=== PATIENT | male | born 1985 | race Caucasian/White ===

== ENCOUNTER 2016-11-23 07:45 | Inpatient (IN) | payer MEDICARE, MEDICAID ==
[~2016-11-23] VITALS: Ht 180.3 cm; Wt 95.8 kg
--- NOTE | ~2016-11-23 | DS ---
PATIENT'S NAME: ULISSES YODER [facility] AGE: 31 Y [address] ROOM: [address] [place], [place] [address] LOCATION: G3N ADMIT DATE: 11/23/2016 Discharge Summary DISCHARGE DATE: 11/29/2016 FAMILY PHYSICIAN: Kings Patel MD ATTENDING PHYSICIAN: Domo Barney PRIMARY DIAGNOSES: 1. Severe sepsis. 2. MSSA bacteremia. 3. Line sepsis. 4. Acute hypoxic respiratory failure. 5. Pulmonary edema. 6. Pulmonary nodules on radiological imaging with mediastinal and hilar adenopathy. 7. Tngcja-fo-bmxqrls kidney disease. 8. Thrombocytopenia. CHRONIC CONDITIONS: Chronic conditions include end-stage renal disease, on hemodialysis; essential hypertension. LABORATORY DATA: On admission, WBC is 6.0, prior to discharge was 7.2, H and H on admission was 8.8/27.8, was stable throughout hospital stay at 8.0/24.4, prior to discharge; platelet on admission was 108, prior to discharge was 132,000. Sodium was stable at 135 throughout the hospital stay; potassium as well was stable at 4.2 on admission, prior to discharge was 5.0; CO2 on admission was 29, was stable throughout the hospital stay as well. Liver function test was within normal limits. LDH was 248. Phosphorus was 9.5. Magnesium was 2.7. INR was 1.2. Pro-time was 12.7. UA leukocytes 25, nitrite negative, wbc 10-20, bacteria moderate. Procalcitonin on admission was 116.81, repeat was 105.46. CRP was 26.7. MICROBIOLOGY: Two sets of blood cultures on admission were positive for Staph, which was methicillin-sensitive. Urine culture was multiple species with contaminants. Catheter tip was also positive for Staph aureus methicillin-sensitive. Stool for occult blood was negative. Stool for C. diff was negative. Repeat blood culture which was done 3 days after admission remained no growth till discharge. RADIOLOGY: Chest x-ray is reported as no evidence of pneumonia, borderline cardiomegaly, with chronic venous hypertension or mild fluid overload and also imaging for removal of tunneled central venous catheter without port. Repeat chest x-ray is reported as findings of fluid overload or congestive heart failure with cardiac enlargement, vascular congestion, bilateral perihilar and infrahilar edema, infiltrate and atelectasis could also contribute to the hazy parenchymal opacity in the both lungs. CTA for PE protocol of the chest is PATIENT'S NAME: ULISSES YODER [facility] AGE: 31 Y [address] ROOM: [address] [place], [place] [address] LOCATION: [facility] ADMIT DATE: 11/23/2016 Discharge Summary DISCHARGE DATE: 11/29/2016 FAMILY PHYSICIAN: Kings Patel MD ATTENDING PHYSICIAN: Domo Barney reported as no CT findings of pulmonary embolism, mediastinal and hilar adenopathy, cardiac enlargement with vascular congestion, diffuse ground-glass opacity in the parenchyma of both lungs, which could reflect edema or infiltrate. Too numerous to count pulmonary nodules predominantly in the periphery of both lungs measuring in size up to about 2 cm. This could be infectious or inflammatory origin or of neoplastic origin. Small pericardial effusion. HOSPITAL COURSE: For history of present illness, please take a look at the H and P, which was done by Dr. Barney. The patient was admitted to Progressive Care Unit and was managed as per the sepsis protocol pathway. The patient was started on broad-spectrum antibiotics of meropenem, Levaquin, and vancomycin from the first day of the hospital stay. Also, on the first day of the hospital stay, source of infection was thought to be secondary to the tunnel dialysis catheter, which was subsequently removed on the first day of the hospital stay, and catheter tip sent for culture. By the next day of the hospital stay, blood culture and the catheter tip culture were already positive for Staph; so, the antibiotics was deescalated down to vancomycin only with meropenem and Levaquin being discontinued. The patient continued on vancomycin and also had a temporary dialysis catheter put in place and continue with his dialysis. He was followed up by the Renal Team for this. However, the patient also did develop some acute hypoxic respiratory failure, which was thought to be secondary to pulmonary edema from fluid overload; however, there was difficulty in weaning the patient off his oxygen. Because of this and because of the finding on the echocardiogram which revealed increased pressure on the right-side of the heart as well as increased PE pressure, there was concern for a PE; so, a CTA chest for PE was done, which was negative for PE; however, did show mediastinal and hilar lymphadenopathy as well as numerous pulmonary nodules, which were present on the periphery of the lungs. Given the CT findings, the patient also did get a Pulmonary consult and Pulmonary did not think that the radiological imaging was classical for sarcoid, but they felt that most of the findings could be secondary to still sign of fluid overload; so, they recommended for Renal to take more fluid out from the patient during dialysis. The patient was also evaluated by the Infectious Disease doctor for recommendation on antibiotics and duration; and after patient was reviewed by them, they recommended the patient to be on Ancef after dialysis for a total of 4 weeks and ID doctors felt that possibly the numerous pulmonary nodules on the CT may be showers of emboli from the patient's infected tunneled dialysis catheter and in order to err on the side of caution they recommended for the patient to be treated for a total of 4 weeks should in case this indeed actually embolize. So, plan by the Pulmonary Team was for the patient to get a repeat CT of his chest done in 6 weeks and for the patient to follow up with them as outpatient. On the day of discharge, the patient had his dialysis done, he had more fluid pulled out such that his discharge weight was less than his usual dry weight. He was PATIENT'S NAME: ULISSES YODER [facility] AGE: 31 Y [address] ROOM: [address] [address] LOCATION: [facility] ADMIT DATE: 11/23/2016 Discharge Summary DISCHARGE DATE: 11/29/2016 FAMILY PHYSICIAN: Kings Patel MD ATTENDING PHYSICIAN: Domo Barney successfully weaned off the oxygen to room air; however, he did also get an overnight trend ox done, which was positive, and he required him to go home with O2 only at nighttime; however, because his insurance did not cover this, the patient decided not to go home on oxygen and not to go ahead with this plan; so, he was discharged home without oxygen to sleep with at night even though the desaturation at daytime was within a normal value. So, on the day of discharge, after his dialysis, he received his antibiotics, vital signs were stable, and he was discharged home. MEDICATIONS ON DISCHARGE: Includes: 1. Aspirin 81 mg p.o. q.h.s. 2. Lipitor 10 mg p.o. q.h.s. 3. Coreg 37.5 mg p.o. twice daily. 4. Ferrous sulfate 325 mg p.o. q.h.s. 5. Lasix 80 mg p.o. q.h.s. 6. Hydralazine 100 mg p.o. 3 times daily. 7. Cozaar 50 mg p.o. q.h.s. 8. Minoxidil 5 mg p.o. q.h.s. 9. Sodium bicarb 650 mg p.o. q.h.s. 10. Tylenol 1 g p.o. q.6 h. p.r.n. 11. Ferric citrate 420 mg p.o. 3 times daily. 12. Cefazolin 2 g IV after each session of dialysis on Tuesdays, , and Saturdays x4 weeks from November 26, 2016. Time spent on this patient is approximately 35 minutes, which included coordinating care of discharge. MD CIELO FRANCO/kennedy /[id number] d: 11/30/16 0026 t: 12/10/16 1008, DISCHARGE SUMMARY
--- NOTE | ~2016-11-23 | ECHO ---
Transthoracic Echocardiography Report (TTE) Demographics Patient Name ULISSES YODER Date of Study 11/25/2016 P Patient Number [id number] Visit Number [id number] Date of 1985 Room Number G6335 Gender Male Number Age 31 year(s) Referring Jorge Del Real Preform Machine Operator Lucina Albarran RDCS, Physician RVT Physician Interpreting Marilee Pacheco [employer]aster Helper Physician Anna BAKER Supervising Ordering Ector Hernandez MD/MLP Physician MD Nurse Stress Saw Grinder Conclusions Contractility Score Summary Normal Left Ventricular contractility was noted. Summary The estimated left ventricular ejection fraction is 55-60%. Mild concentric left ventricular hypertrophy. Diastolic assessment reveals Grade I diastolic dysfunction. The left atrium is moderately dilated. The right atrium is moderate to severely dilated. There is moderate pulmonary hypertension. The pulmonary pressure (RVSP) is 56mmHg. Mild-moderate tricuspid regurgitation by color Doppler. The ascending aorta appears mildly dilated. The maximum diameter measures 3.45 cm. Procedure Type of Study TTE procedure:2D Echocardiogram. Procedure Date Date: 11/25/2016 Start: 08:58 AM Study Location: Inpatient Portable Indications:Endocarditis. Additional Indications:sepsis Appropriate Use Criteria: 9 Patient Status: Routine Rhythm: Sinus tachycardia HR: 96 bpm BP: 154/77 mmHg M-Mode/2D Measurements LV Diastolic Dimension: 5.23 cm LV Systolic Dimension: 3.41 cm LV Septum Diastolic: 1.3 cm LV PW Diastolic: 1.41 cm AO Root Dimension: 2.5 cm Cardiac Output: 8.57 l/min AV Cusp Separation: 2.8 cm RV Diastolic Dimension: 2.64 cm LA volume: 84 ml IVC Inspiration: 1.04 cm LVOT: 2.3 cm RV Base: 4.8 cm LVOT VTI: 21.5 cm RV Mid: 3.2 cm LV Stroke volume: 89.28 ml TAPSE: 2.5 cm TDI-S': 18 cm/s Doppler Measurements AV Peak Velocity: 2.33 m/s MV Peak E-Wave: 0.9 m/s AV Peak Gradient: 21.72 mmHg MV Peak A-Wave: 1.15 m/s AV Mean Gradient: 11 mmHg MV E/A Ratio: 0.79 LVOT Peak Velocity: 1.31 m/s MV P1/2t: 71 msec TR Gradient:46.24 mmHg PV Peak Velocity: 1.46 m/s Estimated RAP:10 mmHg PV Peak Gradient: 8.53 mmHg Estimated RVSP: 56 mmHg Estimated PASP: 56.24 mmHg E' Lateral Velocity: 0.11 m/s A' Lateral Velocity: 0.15 m/s Findings Left Ventricle The estimated left ventricular ejection fraction is 55-60%. Mild concentric left ventricular hypertrophy. Diastolic assessment reveals Grade I diastolic dysfunction. Right Ventricle Normal right ventricle structure and function. Left Atrium The left atrium is moderately dilated. Right Atrium The right atrium is moderate to severely dilated. Mitral Valve Mild mitral regurgitation by color Doppler. Aortic Valve The aortic valve is mildly sclerotic. Tricuspid Valve There is moderate pulmonary hypertension. The pulmonary pressure (RVSP) is 56mmHg. Mild-moderate tricuspid regurgitation by color Doppler. Pulmonic Valve Trivial pulmonic valve regurgitation by color Doppler. Pericardial Effusion No evidence of pericardial effusion. Miscellaneous The ascending aorta appears mildly dilated. The maximum diameter measures 3.45 cm. Pleural Effusion No evidence of pleural effusion. Signature dtt: Abiodun Hunt dtd: 11/25/16 0858 Physician Self Edit
--- NOTE | ~2016-11-23 | HP ---
PATIENT'S NAME: ULISSES YODER [facility] AGE: 31 Y [address] ROOM: [place] [address] LOCATION: GPCU ADMIT DATE: 11/23/2016 History & Physical DISCHARGE DATE: FAMILY PHYSICIAN: GEOVANNA GALLO MD ATTENDING PHYSICIAN: KIMBERLY CAZARES DATE OF SERVICE: CHIEF COMPLAINT: Fever and chills. HISTORY OF PRESENT ILLNESS: A 31-year-old gentleman with a past medical history of essential hypertension and end-stage renal disease of unclear etiology, at this point having on hemodialysis for quite some time now. Fistula placed on the left side. Had a port placement 1 week ago at [facility] on the right side and had previous port removed secondary to thrombosis. He was at dialysis center yesterday when he started having fever and chills. His 2 sets of blood cultures were drawn there and he was given 1 g of vancomycin and was sent home. He continued to have fever and chills overnight and presented to the emergency department today with the similar complaints. On my encounter, he is saying that he is having fever and rigors, but he denied having any shortness of breath, any sputum production, any dizziness, any burning on urination (makes very little urine), any diarrhea, or any leg swelling. On further inquiry, he denied having any PND, orthopnea, or dizziness. REVIEW OF SYSTEMS: All other systems reviewed and were negative except what is mentioned in the HPI. PAST MEDICAL HISTORY: Essential hypertension and end-stage renal disease, on hemodialysis. MEDICATIONS: Medications are being reconciled right now. ALLERGIES: NO KNOWN DRUG ALLERGIES. SOCIAL HISTORY: Never a smoker. No drug or alcohol use. FAMILY HISTORY: Family history is significant for high blood pressure in both mom and dad and diet-controlled diabetes in mother. PATIENT'S NAME: ULISSES YODER [facility] AGE: 31 Y [address] ROOM: [place] [address] LOCATION: GPCU ADMIT DATE: 11/23/2016 History & Physical DISCHARGE DATE: FAMILY PHYSICIAN: GEOVANNA GALLO MD ATTENDING PHYSICIAN: KIMBERLY CAZARES PHYSICAL EXAMINATION: VITAL SIGNS: Blood pressure 95/64, 100, 102.4, 20. GENERAL: No acute distress. Alert and oriented x3. HEENT: Head: Atraumatic and normocephalic. Eyes: Nonicteric. No pallor. Oropharynx. Moist mucous membranes. CARDIOVASCULAR: S1, S2. Overflow murmur, systolic noted. RESPIRATORY: Clear to auscultation bilaterally. ABDOMEN: Soft, nontender, nondistended. Bowel sounds are present. EXTREMITIES: No clubbing, cyanosis, or edema. VASCULAR: Left upper extremity fistula noted. There is right subclavian dialysis catheter in place. NEUROLOGIC: Cranial nerves 2 through 12 intact. No motor or sensory deficits. PSYCH: Normal affect, mood, and speech. IMAGING DATA: Chest x-ray was done in the emergency department, which showed mild pulmonary vascular congestion and a questionable infiltrate in the right lower lung lobe and a dialysis port is in place. LABORATORY DATA: Lab work was remarkable for lactic acid of 3.4, procalcitonin is of 116.81. CMP: Sodium 135, potassium 4.2, chloride of 93, bicarb 29, anion gap of 17, glucose 148, calcium 8.0, BUN 56, creatinine 10. AST and ALT 60 and 72 respectively. Troponin was less than 0.100, proBNP was 46,182. CBC: Obtained WBC count was 6, hemoglobin 8.8, platelets of 108. C-reactive protein of 26. ASSESSMENT/PLAN: 1. Severe sepsis. 2. End-stage renal disease. 3. Essential hypertension. PLAN: We are going to admit this patient to the PCU. At this point, the likely source of infection is the dialysis catheter, which is in the subclavian. We will remove that catheter line DENA. There might be an infiltrate in the lung as well. We are going to start him on sepsis protocol. Two sets of blood cultures have already been obtained at the dialysis center yesterday, we will not repeat those. He has already received 1 L of normal saline. Given, he is a dialysis patient, we will repeat only 500 mL of Ringer's lactate more and see how his blood pressure improves, broad-spectrum antibiotics including vancomycin, meropenem, and Levaquin have been initiated. We will obtain repeat lactic acid levels and see the progress. Nephrology consultation has been obtained and they will see the patient. Given that we have to remove his PATIENT'S NAME: [facility] AGE: 31 Y [address] ROOM: [address] [place], [place] [address] [facility] ADMIT DATE: 11/23/2016 History & Physical DISCHARGE DATE: FAMILY PHYSICIAN: GEOVANNA GALLO MD ATTENDING PHYSICIAN: KIMBERLY CAZARES central line, we will not start him on chemical prophylaxis at this point. SCDs, and low-sodium diet. We will follow along. MD ISMAEL SANDOVAL/kennedy /[id number] D: [id number] T: [id number] HISTORY & PHYSICAL
--- NOTE | ~2016-11-23 | CON ---
PATIENT'S NAME: ULISSES YODER [facility] AGE: 31 Y [address] ROOM: [address] [place], [place] [address] LOCATION: G3N ADMIT DATE: 11/23/2016 Consultation DISCHARGE DATE: 11/29/2016 FAMILY PHYSICIAN: Kings Patel MD ATTENDING PHYSICIAN: Domo Barney DATE OF CONSULTATION: 11/28/2016 REFERRING PHYSICIAN: Tiffanie Sanders MD INDICATION: Pulmonary nodules and adenopathy. HISTORY OF PRESENT ILLNESS: This is a 31-year-old male with a history of end-stage renal disease and hypertension, admitted for sepsis and acute respiratory failure. He reports that he had his port replaced last week after the previous one was removed due to thrombosis. Shortly thereafter, he developed fever, chills, nausea, and was evaluated in the ER. He was started on vancomycin, and blood cultures returned positive for Staph aureus. He reports a history of end-stage renal disease, on hemodialysis for the last year secondary to obstructive uropathy. Currently, he denies any shortness of breath, cough, hemoptysis, or edema. He denies any previous lung history. He reports no skin issues. No tobacco use, alcohol use, or drug use. CT of the chest was performed secondary to respiratory failure and demonstrated multiple nodules with adenopathy. An echo was also performed showing bilateral atrial enlargement and pulmonary hypertension. PAST MEDICAL HISTORY: End-stage renal disease, on hemodialysis; and hypertension. ALLERGIES: SEE MAR. MEDICATIONS: See MAR. FAMILY HISTORY: Significant for hypertension and diabetes in his mother. SOCIAL HISTORY: He denies tobacco or alcohol use. REVIEW OF SYSTEMS: A 12-point review of systems is negative except for what is noted in the HPI. PATIENT'S NAME: ULISSES YODER [facility] AGE: 31 Y [address] ROOM: [address] [place], [place] [address] LOCATION: N ADMIT DATE: 11/23/2016 Consultation DISCHARGE DATE: 11/29/2016 FAMILY PHYSICIAN: Kings Patel MD ATTENDING PHYSICIAN: Domo Barney PHYSICAL EXAMINATION: VITAL SIGNS: Blood pressure 135/74, pulse 93, respirations 18, temp 97.8, he is 87% on room air. GENERAL: This is a 31-year-old, well-developed, well-nourished male, who is alert and oriented x3, and appears in no acute distress at the time of exam. HEENT: Head: Normocephalic, atraumatic. Eyes: Clear. NECK: Supple. No adenopathy. No carotid bruits or JVD. LUNGS: With a few bibasilar crackles, otherwise clear. HEART: Regular rate and rhythm without murmur, gallop, or rub. ABDOMEN: Soft, nontender, nondistended. Bowel sounds x4. EXTREMITIES: No cyanosis, clubbing, or edema. DIAGNOSTIC DATA: ProBNP 46,182. Sodium 135, potassium 5, bicarb 20, BUN 101, creatinine 14.8. WBC 7.2, hemoglobin 8, hematocrit 24.4, platelets 132. CT of the chest showed multiple nodules with adenopathy. Echo showed bilateral atrial enlargement, pulmonary hypertension. ASSESSMENT: 1. Abnormal chest CT with few abnormalities including diffuse ground-glass opacities suggestive of pulmonary edema. Multiple lung nodules suggestive of inflammatory condition, possibly granuloma, sarcoid. Overall less likely to be malignant and mediastinal adenopathy, which is small and can be in the context of pulmonary edema versus sarcoid versus malignancy. 2. Acute respiratory failure due to pulmonary edema. 3. End-stage renal disease, on hemodialysis. 4. MSSA bloodstream infection related to the catheter. PLAN: Recommend continuing with aggressive dialysis for now to facilitate resolution of pulmonary edema. We will repeat a chest CT in [address] demonstrates positive LAD at that time, we will plan for bronchoscopy with EBUS and FNA of lymph nodes. Prior to discharge, recommend checking an overnight oximetry. Thank you for the consult and opportunity to participate in this patient's care. APOLINAR VIRK APRN FOR VERN CARVER MD PATIENT'S NAME: ULISSES YOEDR [facility] AGE: 31 Y [address] ROOM: [place] [address] LOCATION: [facility] ADMIT DATE: 11/23/2016 Consultation DISCHARGE DATE: 11/29/2016 FAMILY PHYSICIAN: Kings Patel MD ATTENDING PHYSICIAN: Domo Barney MRH/modl /[id number] d: 12/26/16 0058 t: 01/07/17 1620, CONSULTATION REPORT
--- NOTE | ~2016-11-23 | CON ---
PATIENT'S NAME: ULISSES YODER [facility] AGE: 31 Y [address] ROOM: [id number] [place], [place] [address] LOCATION: GPCU ADMIT DATE: 11/23/2016 Consultation DISCHARGE DATE: FAMILY PHYSICIAN: GEOVANNA GALLO MD ATTENDING PHYSICIAN: KIMBERLY CAZARES DATE OF CONSULTATION: 11/23/2016 REFERRING PHYSICIAN: Cassandra Sanders REASON FOR CONSULTATION: ESRD, need for hemodialysis. HISTORY OF PRESENT ILLNESS: A 31-year-old male patient with history of hypertension, ESRD, never been biopsied but presumably from obstructive uropathy, started on PD since December 2015 and then later switched to hemodialysis in July 2016, now getting dialysis from left forearm AV fistula, had a right tunnelled dialysis catheter since July 2016, last use of TDC was on 11/20/2016, complained of fever and chills since 11/22/2016. He got a dose of vancomycin while on dialysis yesterday and culture was sent, however, since today, culture has had no growth at the outside facility. Today, he came to ER with not feeling well, having some more fever or chills, however, no documented fever since admission. The patient has 29% bands on differentials, and procalcitonin of 116. He denied any chest pain, shortness of breath, cough. No nausea, vomiting, or diarrhea. The patient's last dialysis was yesterday. No urinary complaints including dysuria, urgency, frequency, hesitancy, nocturia. No other specific source of infection. REVIEW OF SYSTEMS: GENERAL: Complaints of fever, chills, and rigors as explained above. HEENT: No sore throat. No sinus congestion. CVS: No chest pain. No exertional shortness of breath. No leg swelling. RESPIRATORY: No shortness of breath. No cough. No wheezing. GENITOURINARY: No pain with urination. No increased frequency. No nocturia. GASTROINTESTINAL: No abdominal pain. No abdominal distention. No nausea or vomiting. NEUROLOGIC: No weakness. No seizures. SKIN: No rash. No itching. ALLERGIES: No seasonal allergy. No hayfever. ENDOCRINE: No heat intolerance. No cold intolerance. PSYCHIATRIC: No sadness. No crying spells. No history of panic attack. PAST MEDICAL HISTORY: 1. Hypertension. 2. ESRD, currently on hemodialysis, presumable etiology is obstructive uropathy. PAST SURGICAL HISTORY: 1. Placement of right tunnelled dialysis catheter in 2016. 2. Placement of a left forearm AVF placement in 2016. 3. Multiple urogenital procedures 8 years back at [place], but the patient can not specify the exact nature of the procedure. FAMILY HISTORY: Denied any significant kidney history or ESRD in the family. SOCIAL HISTORY: The patient does not smoke. Does not drink alcohol. No history of significant IV drug abuse. PATIENT'S NAME: ULISSES YODER [facility] AGE: 31 Y [address] ROOM: [address] [address] LOCATION: GPCU ADMIT DATE: 11/23/2016 Consultation DISCHARGE DATE: FAMILY PHYSICIAN: GEOVANNA GALLO MD ATTENDING PHYSICIAN: KIMBERLY CAZARES PHYSICAL EXAMINATION: VITAL SIGNS: Blood pressure 120/80, pulse 70, respiratory rate 18, saturation 98% on room air. Currently afebrile. GENERAL: Not in apparent distress. HEAD: Moist mucous membranes. Bilateral PERRLA, EOMI. NECK: No JVD, thyromegaly or lymphadenopathy. CVS: S1 and S2 normal, regular rate and rhythm. No murmur, rub, gallop. CHEST: Bilateral air entry equal. No wheeze or rales. ABDOMEN: Soft, nontender, nondistended. Bowel sounds present. EXTREMITIES: No cyanosis, clubbing, or jaundice. Left forearm AVF and right TDC in place. MUSCULOSKELETAL: No limitation of range of motion. SKIN: No pallor, cyanosis, icterus. STRETCH MACHINE OPERATOR: Alert and oriented x3. No gross findings. LABORATORY EVALUATION: Lactate 3.4. Pro-BNP 46,182. Hemoglobin 8.8, WBC 6, platelet 108. Chemistry: Sodium 135, potassium 4.2, chloride 93, bicarbonate 29, BUN 56, creatinine 10, glucose 148, calcium 8. Total protein 5.9, albumin 2.9, AST 60, ALT 72, alkaline phosphatase 52, total bilirubin 0.6. INR 1.2. UA: Specific gravity 1.015, pH 8, positive LE, negative nitrite, 3+ protein, glucose 50, ketone negative, blood 1+, wbc's 10-20, rbc 0-2, moderate bacteria, 1+ mucus. Procalcitonin 116.8. CRP 26.7. Bands 29%. ASSESSMENT AND PLAN: 1. Severe sepsis, possibly secondary to TDC infection versus other source, but, however, we will remove the tunneled dialysis catheter right now, and the patient has been covered with vancomycin, meropenem, and Levaquin until cultures come back. Send blood and urine culture and also the tip of the tunneled dialysis catheter for culture and sensitivity. 2. End-stage renal disease, on hemodialysis now since July 2016. Before, the patient was on PD since October 2015, has functioning left forearm AV fistula. We will remove the TDC today and plan to dialyze tomorrow. 3. Hypertension: Patient has a history of questionable noncompliance versus very uncontrolled hypertension; currently on 5 different medications, we would request the primary team not to restart minoxidil and hydralazine, but, however, they can restart the other home antihypertensive medication whenever feel necessary. Thank you for allowing me to participate in this patient's care. We will closely monitor the patient's progress along with you. [facility] MD /modl /[id number] d: 11/23/162032 t: 11/24/16 1315, CONSULTATION REPORT
--- NOTE | ~2016-11-23 | CON ---
PATIENT'S NAME: ULISSES YODER [facility] AGE: 31 Y [address] ROOM: [place] [address] LOCATION: N ADMIT DATE: 11/23/2016 Consultation DISCHARGE DATE: FAMILY PHYSICIAN: GEOVANNA GALLO MD ATTENDING PHYSICIAN: KIMBERLY CAZARES DATE OF CONSULTATION: 11/28/2016 REFERRING PHYSICIAN: Cassandra Sanders REASON FOR CONSULTATION: MSSA bacteremia associated with a hemodialysis catheter. HISTORY: Mr. Yoder is a 31-year-old, male, who has history of end-stage renal disease and he is on hemodialysis. He had a right IJ tunneled hemodialysis catheter, but also had a fistula. He is waiting for the fistula to mature. While he was on dialysis on the , he began having fevers and chills. Two sets of blood cultures were drawn, and he was given vancomycin. He was sent home, continued to have fevers and chills, and came into the emergency room. He was therefore admitted. His blood cultures ultimately turned out being positive for Staph aureus which was found to be methicillin sensitive. He was continued on antibiotics, his line was removed, and now ID is asked to see him. He is not having any more fevers, chills, or sweats. He has no shortness of breath, cough, chest pain, nausea, vomiting, or abdominal pain at the present time. He is feeling quite well and hoping to go home soon. ID was asked to comment on his duration of antibiotics. PAST MEDICAL HISTORY: Significant for hypertension; end-stage renal disease due to the medications, he has been getting vancomycin intermittently due to his dialysis. ALLERGIES: NONE KNOWN. SOCIAL HISTORY: Does not smoke, drink, or use illicit drugs. FAMILY HISTORY: Significant for hypertension and diabetes. REVIEW OF SYSTEMS: All remaining review of systems is negative with pertinent positives and negatives in the HPI. PHYSICAL EXAMINATION: PATIENT'S NAME: ULISSES YODER [facility] AGE: 31 Y [address] ROOM: [address] [place], [place] [address] LOCATION: N ADMIT DATE: 11/23/2016 Consultation DISCHARGE DATE: FAMILY PHYSICIAN: GEOVANNA GALLO MD ATTENDING PHYSICIAN: KIMBERLY CAZARES GENERAL: He is not in acute distress. Awake, alert, oriented, sitting up in his bed watching baseball on TV. VITAL SIGNS: His T-max is 98.7, blood pressure 135/74, pulse 93, and respirations 18. HEENT: NC/AT. EOMI. PERRLA. NECK: Supple. LUNGS: Clear. HEART: Regular and without murmur. ABDOMEN: Soft and nontender. EXTREMITIES: Without cyanosis, clubbing, or edema. SKIN: He got a wound dressing over his old right tunneled catheter site on his chest. DIAGNOSTIC DATA: Blood cultures from 11/23 are positive for IMANI, positive cath tip for IMANI. Blood cultures x1 from 11/26 has no growth. White count 7.2, hemoglobin 8, and platelet count 132. ASSESSMENT AND PLAN: 1. Methicillin-sensitive Staphylococcus aureus bacteremia. 2. Collapsing/tunneled hemodialysis catheter infection in the right chest, status post removal. 3. Question septic pulmonary emboli. 4. End-stage renal disease. PLAN: I did review a CT scan, and he has peripheral nodules. This could be related to septic pulmonary emboli related to his line infection or could be something other altogether different. Given this possibility, we would probably treat him with 4 weeks of IV antibiotics and then repeat imaging of his chest. Pulmonary had planned on 6 weeks, which is reasonable. Can give him Ancef 2 g IV after each dialysis session since this is a dialysis-related infection and plan 4 weeks from his clear culture on the 3rd and then stop and then repeat his chest CT. Did speak with the hospitalist today. MD TY ALLAN/kennedy /[id number] d: 11/28/162112 t: 12/26/161757, CONSULTATION REPORT
--- NOTE | ~2016-11-23 | PUL ---
PATIENT'S NAME: ULISSES YODER [facility] AGE: 31 Y [address] ROOM: [address] [address] LOCATION: [facility] ADMIT DATE: 11/23/2016 Pulmonary DISCHARGE DATE: FAMILY PHYSICIAN: GEOVANNA GALLO MD ATTENDING PHYSICIAN: KIMBERLY CAZARES NAME OF PROCEDURE: Overnight Pulse Oximetry DATE OF PROCEDURE: November 28 to November 29, 2016 REASON FOR EXAM: Nocturnal hypoxemia RESULTS: The test was performed on room air. The recording time was 8 hours, 44 minutes and 20 seconds, with a total valid sampling time of 8 hours, 43 minutes. The highest pulse was 97, lowest pulse was 74, with a mean pulse of 86. The highest SpO2 was 97%, lowest SpO2 was 73%, with a mean SpO2 of 87.6%. The patient spent 5 hours, 21 minutes, and 56 seconds with SpO2 less than 89%, representing 61.6% of the total sleep time. The desaturation event index was slightly elevated at 5.4. PHYSICIAN INTERPRETATION: The patient has evidence of significant nocturnal hypoxia and would qualify for supplemental oxygen as per Medicare criteria. MD MELI CHIN/yumiko /[id number] dtt: 11/29/16 1426 , VERN CARVER dtd: 11/29/16 1349
--- NOTE | ~2016-11-23 | ER ---
PATIENT'S NAME: ULISSES YODER [facility] AGE: 31 Y [address] ROOM: [facility] [place], [place] [address] [facility] ADMIT DATE: 11/23/2016 ER/Outpatient Report DISCHARGE DATE: FAMILY PHYSICIAN: GEOVANNA GALLO MD ATTENDING PHYSICIAN: KIMBERLY BARNEY Admission date and time documented in medical record. I saw the patient at 0800 hours. CHIEF COMPLAINT: Fever, shaking chills, nausea, and diarrhea. HISTORY OF PRESENT ILLNESS: The patient is a 31-year-old male, who presented to the emergency room by private vehicle. The patient has a history of end-stage renal failure. He has dialysis Saturday, , and Saturdays. Had dialysis yesterday. He had a low-grade temperature. The blood cultures x2 were drawn. He was given 1 g of vancomycin IV. Sent home. He has had a temperature of a 103 to 104.6 through the night accompanied with some rigors. He had some nausea without vomiting. He had 2 diarrhea stools last night. No blood in his stools. He had a low blood pressure of 90/35 at home. By history, 1 week ago, he had a central port placed. He did have dialysis through that on Saturday, yesterday he had dialysis with his AV fistula. Here in the emergency department, he was awake, alert, and responsive. The patient walked in. He has no headache, eyes, ears, nose, throat, neck, or spine pain. Denies being lightheaded or dizzy. No syncope or near syncope at home. No fall or trauma. No chest pain or shortness of breath. No abdominal pain. He had nausea and no vomiting. Two diarrhea stools. Does make urine. No urinary complaints. No joint or muscle swelling, redness, or pain. No skin eruptions or rash. No history of neuro changes, psych issues, endocrine problems. By history, he had a urethral stricture with urine retention that led to acute on chronic renal failure. HOME MEDICATIONS: See attached medication list. ALLERGIES: NONE. SOCIAL HISTORY: Nonsmoker, occasional intake of alcohol. SIGNIFICANT PAST MEDICAL HISTORY: 1. Hypertension. 2. Systolic congestive heart failure. PATIENT'S NAME: ULISSES YODER [facility] AGE: 31 Y [address] ROOM: [id number] [place], [place] [address] LOCATION: GPCU ADMIT DATE: 11/23/2016 ER/Outpatient Report DISCHARGE DATE: FAMILY PHYSICIAN: GEOVANNA GALLO MD ATTENDING PHYSICIAN: KIMBERLY BARNEY 3. Obstructive uropathy with end-stage renal failure, on hemodialysis. OPERATIONS: 1. Central port placement. 2. AV fistula. 3. Cystoscopies. 4. Knee surgery. REVIEW OF SYSTEMS: All systems reviewed by me are negative with exception of those discussed in the history of present illness. PHYSICAL EXAMINATION: VITAL SIGNS: Temperature 101.2, tympanic; pulse 104, regular; respirations 20; blood pressure 103/49; and O2 saturation on room air was 93%. HEAD: Normocephalic. Eyes, clear. Ears, clear TMs bilaterally. NOSE AND THROAT: Clear. Mucous membranes moist. NECK: No nuchal rigidity. No findings of adenopathy. No tenderness. SPINE: Negative. LUNGS: Clear. No rales, rhonchi, or wheezes. HEART: The patient is tachypneic. Heart tachy regular. Pulses palpable. No chest wall or rib cage pain to palpation. ABDOMEN: Soft, nondistended, and nontender. Bowel tones present. No organomegaly or abnormal mass palpable. No CVA tenderness. EXTREMITIES: Without peripheral edema, cyanosis, or deformity. NEUROVASCULAR: Intact. SKIN: Clear. No skin eruptions or rash. DIAGNOSTIC DATA: Chest x-ray shows increased vascular congestion. There may be some underlying infiltrate. We will review x-ray with the radiologist. LABORATORY DATA: CMS was normal except for low chloride 93, elevated glucose 148, low calcium of 8.0, BUN was elevated 56, creatinine elevated 10.1 with a low GFR of 6. CPK was 147, CK-MB was less than 0.5, troponin was 0.1. Pro-BNP was 46,182, procalcitonin was 116.81, lactate was elevated 3.4. CRP was elevated 26.7. White count was 6061 segs, 29 bands, 5 lymphocytes, 7 monos. Hemoglobin was 8.8, hematocrit 27.8, and platelet count is 108,000. PTT was 36, pro-time is 12.7, INR 1.2. I did give the patient 1 L normal saline IV here in the emergency room. We will proceed with a [address] not [address] him on any pressors at this time. The patient did get 1 g of vancomycin yesterday, we will give him meropenem 1 g IV here in the emergency department. IMPRESSION: PATIENT'S NAME: ULISSES YODER [facility] AGE: 31 Y [address] ROOM: [place] [address] LOCATION: GPCU ADMIT DATE: 11/23/2016 ER/Outpatient Report DISCHARGE DATE: FAMILY PHYSICIAN: GEOVANNA GALLO MD ATTENDING PHYSICIAN: KIMBERLY BARNEY 1. Sepsis. Source undetermined at this time. Suspect his central port that was placed 1 week ago. Did draw one blood culture from the port and one peripheral blood culture, results pending. We will also obtain urine culture, which was pending. He had 2 cultures drawn yesterday, results are pending. The patient sepsis criteria with new onset of infection, tachycardia, tachypnea, bandemia with a band count of 29%, thrombocytopenia, anemia, elevated procalcitonin, lactate, elevated BUN and creatinine, elevated CRP. He was briefly hypotensive with the systolic of 90. 2. Systolic congestive heart failure. BNP was 46,182. His chest x-ray showed increased vascular congestion. 3. End-stage renal failure, on hemodialysis Saturday, , and Saturday. 4. History of hypertension. 5. History of obstructive uropathy causing his renal failure. PLAN: I did discuss this patient with Dr. Sanders, the patient's air hammer operator and also with Dr. Barney, hospitalist. Dr. Barney is coming to the emergency room to evaluate the patient and admit the patient to the hospital. Again, we did start fluids. We did start meropenem antibiotic. I did discuss my findings and recommendations with the patient. He understands. Accumulated critical care time 35 minutes. MD AVEL RAMAN/modl /[id number] d: 11/23/16 1353 t: 11/24/16 1814, OUTPATIENT REPORT
[2016-11-23 08:37] LABS: HEMATOCRIT 27.8 % (37.0-53.0); HEMOGLOBIN 8.8 g/dL (12.0-17.0); MCH 29.6 pg (27.0-34.0); MCHC 31.7 gm/dL (32.0-36.5); MCV 93.6 fl (83.0-98.0); PLATELET COUNT 108 K/uL (150-450); RDW-CV 14.8 % (11.9-14.6)
[2016-11-23 08:42] LABS: INR - (THERAPEUTIC) 1.2 (0.9-1.1); PROTIME 12.7 SECONDS (9.6-11.1); PTT 36 SECONDS (25-32)
[2016-11-23 08:44] LABS: RBC 2.97 M/uL (4.00-6.00)
[2016-11-23 08:59] LABS: ALBUMIN 2.9 gm/dL (3.5-5.0); ALK PHOS 62 IU/L (33-138); ALT 72 IU/L (12-78); ANION GAP 17.2 (10.0-19.0); AST 60 IU/L (10-40); CHLORIDE 93 mMol/L (96-110); CO2 29 mMol/L (22-32); CPK 147 IU/L (35-332); POTASSIUM 4.2 mMol/L (3.7-5.1); SODIUM 135 mMol/L (135-145); TOTAL BILIRUBIN 0.6 mg/dL (0.0-1.5); TOTAL PROTEIN 5.9 g/dL (6.0-8.4)
[2016-11-23 09:05] LABS: BLOOD UREA NITROGEN 56 mg/dL (6-24); CREATININE 10.1 mg/dL (0.6-1.3); ESTIMATED GFR (MDRD EQUATION) 6
[2016-11-23 09:26] LABS: ABSOLUTE NEUTROPHIL CT (ANC) 5.4 K/uL (1.4-9.0); BANDED NEUTROPHIL # 1.7 K/uL (0.0-0.1); BANDED NEUTROPHILS % 29 %; LYMPHOCYTE # 0.3 K/uL (0.8-4.0); LYMPHOCYTE % 5 %; MONOCYTE # 0.4 K/uL (0.0-1.0); SEGMENTED NEUTROPHIL # 3.7 K/uL (1.4-9.0); SEGMENTED NEUTROPHIL % 61 %
[2016-11-23 10:01] LABS: BILIRUBIN URINE NEGATIVE (NEGATIVE); BLOOD URINE 25 /UL (NEGATIVE); COLOR URINE YELLOW (YELLOW); GLUCOSE URINE 50 mg/dL (NEGATIVE); KETONE URINE NEGATIVE (NEGATIVE); LEUKOCYTES URINE 25 /UL (NEGATIVE); NITRITE URINE NEGATIVE (NEGATIVE); PROTEIN URINE 500 mg/dL (NEGATIVE); SPEC GRAVITY URINE 1.015 (1.003-1.035); TURBIDITY URINE CLEAR (CLEAR); UROBILINOGEN URINE NORMAL (NORMAL)
[2016-11-23 10:23] LABS: BACTERIA URINE MODERATE (NEGATIVE); MUCUS URINE 1+ (NEGATIVE); RBC URINE 0-2 #/HPF (NEGATIVE)
[2016-11-23] MEDS ORDERED: HYDRALAZINE HC100 MG PO (10:51)
[2016-11-23] MEDS ORDERED: MINOXIDIL10 MG PO (10:51)
[2016-11-23] MEDS ORDERED: COZAAR50 MG PO (10:51)
[2016-11-23] MEDS ORDERED: SODIUM BICARBO650 MG PO (10:52)
[2016-11-23] MEDS ORDERED: FERROUS SULFAT325 MG PO (10:52)
[2016-11-23] MEDS ORDERED: LASIX80 MG PO (10:52)
[2016-11-23] MEDS ORDERED: LIPITOR10 MG PO (10:53)
[2016-11-23] MEDS ORDERED: COREG25 MG PO (10:53)
[2016-11-23] MEDS ORDERED: TYLENOL EXTRA500 MG PO (10:53)
[2016-11-23] MEDS ORDERED: AURYXIA210 MG PO (10:54)
[2016-11-23] MEDS ORDERED: ASPIRIN LO-DOSE81 MG PO (10:54)
--- NOTE | 2016-11-23 11:28 | NUR ---
PATIENT IS 31 YO MALE ADMITTED THIS AM FOR SEPSIS FOLLOWING PLACEMENT OF A NEW HEMO-DIALYSIS CATHETER LAST SATURDAY, ONE WEEK AGO. PATIENT IS ADMITTED FROM THE ER. PATIENT HAD BEEN LIVING IN [place], WORKED [employer], UNTIL HE STARTED HAVING HEALTH ISSUES AND MOVED HOME, LIVES WITH HIS MOTHER. PATIENT WAS DIAGNOSED IN 09/2015 WITH END-STAGE RENAL DISEASE WITH NO PRIOR HISTORY OF HEALTH ISSUES PRIOR TO THAT. IV IS PATENT IN RIGHT HAND WITHOUT ERYTHEMA OR EDEMA NOTED AT SITE. EDUCATION IS GIVEN DOCUMENTED. PATIENT DENIES QUESTIONS AT THIS TIME. PNEUMATICS ARE ON BILAT CALVES. PATIENT HAS CALL LIGHT IN REACH. DENIES NEEDS. REPORT IS GIVEN TO REKHA SANTIAGO.
--- NOTE | 2016-11-23 17:29 | NUR ---
Significant Event:PT IS AAOX3. NO C/O NUMBNESS OR TINGLING. NO CHEST PAIN OR SOB. DIAYLSIS PATIENT X1 YEAR. HAD A URINARY BLOCKAGE THAT DAMAGE HIS KIDNEY PT STATED AND NOW HE IS ON DIAYLSIS TIL HE CAN GET A TRANSPLANT. DIAYSIS YEST. HAD FEVER AND RECIEVED VANCO THEN. THIS AM HAD FEVER AND CHILL ALONG WITH DIARRHEA. WAS ADMITTED. HAD RECENT TUNNEL LINE PLACE WHICH WAS REMOVED TODAY AND CULTURED TIP SENT. IV ATB. NO FEVER SINCE UP TO FLOOR. SBP IN 100-130'S. ON RA. ACTIVE BS. NO BM SINCE UP TO FLOOR BUT IF DIARRHEA TO GET A SAMPLE TO TEST FOR CDIFF. DIAYSIS TOMORROW AROUND 0900 NO C/O PAIN Follow up:MONITOR BP AND TEMP
--- NOTE | 2016-11-24 05:00 | NUR ---
Significant Event: Patient is A/O x3. Up with 1A. No compliants of pain. Has been on dialysis for 1 year due to urinary blockage leading to ELSA. Is on dialysis until he gets a transplant. Had fever at 1830 of 100. Gave PO tylenol 650 mg. Fever continued to rise to 102.3. Gave Ofirmev and ice packs. Fever returned to 98.7. SBP in 120s-140s. Put on 2L early in shift, titrated down to 1L at 0330. No BM tonight but supposed to get a sample to test for C.diff if has diarrhea. Dialysis today around 0900. Follow up: Monitor BP and temperature.
[2016-11-24 05:03] LABS: HEMATOCRIT 25.9 % (37.0-53.0); HEMOGLOBIN 8.5 g/dL (12.0-17.0); MCH 30.1 pg (27.0-34.0); MCHC 32.8 gm/dL (32.0-36.5); MCV 91.8 fl (83.0-98.0); PLATELET COUNT 97 K/uL (150-450); RBC 2.82 M/uL (4.00-6.00); RDW-CV 14.6 % (11.9-14.6); WBC 5.3 K/uL (4.0-11.0)
[2016-11-24 05:17] LABS: ANION GAP 15.5 (10.0-19.0); CALCIUM 8.4 mg/dL (8.5-10.5); POTASSIUM 4.5 mMol/L (3.7-5.1)
[2016-11-24 05:21] LABS: CREATININE 11.8 mg/dL (0.6-1.3)
[2016-11-24 05:49] LABS: ABSOLUTE NEUTROPHIL CT (ANC) 4.4 K/uL (1.4-9.0); LYMPHOCYTE # 0.3 K/uL (0.8-4.0); LYMPHOCYTE % 6 %; MONOCYTE # 0.5 K/uL (0.0-1.0); SEGMENTED NEUTROPHIL # 4.4 K/uL (1.4-9.0); SEGMENTED NEUTROPHIL % 82 %
--- NOTE | 2016-11-24 17:05 | NUR ---
Significant Event: a/o x 3. c/o pain to right side of torso prior to dialysis. PRN tylenol administered with no further c/o pain. denies numbness/tingling. dialysis this morning. fistula per left forearm utilized without any difficulties. 1 liter of oxygen when sleeping. takes meds whole. regular diet. ambulates with SBA. DSG to discontinued fistula site right chest C/D/I. large loose bowel movement this shift- negative for Cdiff and negative for occult blood. New order for vancomycin initial dosed this aftn. Orders for 2D heart echo for staph bacteremia with endocarditis risk.
--- NOTE | 2016-11-25 04:22 | NUR ---
Significant Event: Patient is A/O x3. Up ad sepideh in room. Ran a fever of 100.2 at beginning of shift. Treated with 650 mg of Tylenol PO. Afebrile at next assessments. VSS. 5L off at dialysis today. Required 2L of O2 at night. Dressing to discontinued tunnelled line on R) chest C/D/I. No compliants of pain this shift. Follow-up: Orders for 2D heart echo for staph bacteremia with endocarditis risk.
--- NOTE | 2016-11-25 20:07 | NUR ---
Significant Event: a/o x 3. denies pain. IV to right forearm saline locked. fistula to left forearm. dsg to right chest from old dialysis site. dsg may be discontinued tomorrow. up ad sepideh in room. oxygen saturations 84% on room and and patient restarted on 1 liter of oxygen. respiratory severity scoring to be done per RT. dialysis on , and saturdays. monitor for temperature. IV vancomycin to be dosed per pharmacy and administered 4/3 next dose. 2D heart echo done this shift.
--- NOTE | 2016-11-26 02:53 | NUR ---
Significant Event:Patient alert and ox3. Up ad sepideh in room. C/o tenderness to rt flank. Tylenol given x1, states is better. Temp of 100.4 this shift. Moves all extremeites. Vanco on hold until redraw of vanc levels. Fistula to left arm with bruit and thrill. Dressing to upper rt chest from diaylsis line, c/d/i. Follow up:Vanco levels, monitor for pain.
--- NOTE | 2016-11-26 14:47 | NUR ---
Significant Event: Patient A/O x3. VS stable on 2L 02 per NC. Patient up independently in room. Patient denies numbness or thingling to extremities. Can move all extremities on command. Patient does complain of R) flank, Tylenol given x2 this shift, with relief noted. Fistula to L) FA. Bruit and thrill present. Patient to have Vanco on 11/27/16 after dialysis. Dialysis will be on SaturdayNovember 27. Patient pleasant and cooperative with cares. Patient transferred to . Report given to nurse Briggs. Transferred patient via wheelchair/transport team and all belongings. Follow up:
--- NOTE | 2016-11-26 18:08 | NUR ---
ARRIVED FROM PCU PER WHEEL CHAIR TO ROOM 3306. UP AD URBAN. ARRIVED WITH O2 AT 2L. WEANED OFF NOW AND IS SATING AT 93-94% ON ROOM AIR. HAS A DIALYSIS FISTULA IN LEFT ARM. HAS DIALYSIS ON . C/O RIGHT FLANK PAIN BUT IT IS CONTROLED WITH TYLENOL. HAS NOT HAD ANY SINCE ARRIVE TO 3 N. VERY COOPERATIVE WITH CARE.
--- NOTE | 2016-11-27 02:25 | NUR ---
Significant Event: PATIENT ALERT AND ORIENTED X 3. HYPERTENSIVE AT BEGINNING OF SHIFT SBP 180-190/90-100'S, MD NOTIFIED - HOME B/P MEDS RESTARTED, NOW 150'S/80'S. O2 AT 3L PER NC - MD NOTIFIED OF INCREASED O2 NEED - CHEST X-RAY AND EKG DONE. CHEST X-RAY SHOWED FLUID OVERLOAD - NO NEW ORDERS, WILL HAVE DIALYSIS TODAY. NO TEMP THIS SHIFT. TAKES PO WITHOUT DIFFICULTY. NO VOID - NORMAL FOR PATIENT. UP AD URBAN IN ROOM. C/O OF ONLY MILD FLANK PAIN - REFUSES PAIN MEDS. SALINE LOCK PATENT IN RIGHT HAND. FISULA PRESENT WITH BRUIT AND THRILL IN LEFT ARM. DAILY WEIGHT - 99.8 KG. PLEASANT AND COOPERTIVE WITH CARES. Follow up: DIALYSIS //SAT
[2016-11-27 06:22] LABS: BASOPHIL % 0.3 %; EOSINOPHIL # 0.2 K/uL (0.0-0.5); EOSINOPHIL % 2.9 %; HEMATOCRIT 24.4 % (37.0-53.0); IMMATURE GRANULOCYTE % 0.4 %; LYMPHOCYTE # 0.8 K/uL (0.8-4.0); LYMPHOCYTE % 10.6 %; MCH 29.9 pg (27.0-34.0); MCHC 32.8 gm/dL (32.0-36.5); MONOCYTE # 0.9 K/uL (0.0-1.0); MONOCYTE % 12.8 %; MPV 10.6 fl (9.4-12.4); NEUTROPHIL # (ANC) 5.3 K/uL (1.4-9.0); NRBC % 0 /100WBC (0-0.00); RBC 2.68 M/uL (4.00-6.00); RDW-CV 14.9 % (11.9-14.6); WBC 7.2 K/uL (4.0-11.0)
[2016-11-27 06:23] LABS: PLATELET COUNT 132 K/uL (150-450)
[2016-11-27 06:39] LABS: CALCIUM 8.6 mg/dL (8.5-10.5)
[2016-11-27 06:40] LABS: CREATININE 14.8 mg/dL (0.6-1.3); MAGNESIUM 2.7 mg/dL (1.3-2.6)
--- NOTE | 2016-11-27 13:21 | NUR ---
pt taken down to dialysis at 0830
--- NOTE | 2016-11-27 14:20 | NUR ---
Introduced self/role to patient. Lives in [place]. Has good supports, goes to dialysis 3x a week. No needs at this time. Wrote my name on his marker board.
--- NOTE | 2016-11-27 16:05 | NUR ---
Significant Event: PT ALERT AND ORIENTED. DOWN TO DIALYSIS AT 0830 AND RETURNED TO FLOOR AT 1300. 5 LITERS REMOVED. PT DOES NOT VOID. IV VANCO GIVEN AND ORAL MEDS ALSO GIVEN AFTER DIALYSIS. UNSURE OF DISCHARGE DATE. PT DENIES PAIN. UP AD URBAN IN THE ROOM. Follow up:
--- NOTE | 2016-11-28 04:21 | NUR ---
Patient alert and oriented x3, pleasant and cooperative, up ad sepideh in room, patient states he does not void, blood pressure has been good this shift, has rested well, is currently on 1L of 02 needing to wean off oxygen for him to go home, no c/o pain or discomfort
--- NOTE | 2016-11-28 14:09 | NUR ---
A - PT SCREENED D/T LOS. ESRD - DIALYSIS T//. LABS: BUN/CR 101/14.8, ALB 2.9, MG 2.7, CRP 26.7, HGB/HCT 8.0/24.4. MEDS: LASIX, FEOSOL, AURYXIA. HT: 71" WT: 220# BMI: 30.7 DIET: 2-3 GM SODIUM. INTAKE: REF-100% (AVG ~59%) NEEDS: 0203-8737 KCAL (30-35 KCAL/KG IBW), 94-109 G PRO (1.2-1.4 G/KG IBW), 2000 ML FLUID (20 ML/KG). D - INADEQUATE NUTRIENT INTAKE AT TIMES R/T DECREASED APPETITE AEB INTAKE RECORD. I - GOAL FOR INTAKE 50-100% FOR DURATION OF STAY. WILL ADD ENSURE @ D TO INC NUTRIENT INTAKE. M/E - WILL MONITOR INTAKE F/U IN 5-6 DAYS.
--- NOTE | 2016-11-28 15:31 | NUR ---
Significant Event: pt alert and oriented. up in the room by self michell well. id to see today due to nodules on the ct scan. ancef started as per order. apresaline held at 1400 due to low b/p. unsure of discharge date. will have dialysis tomorrow. no urine output is normal for him. shower this afternoon. Follow up:
--- NOTE | 2016-11-29 04:23 | NUR ---
Significant Event: Will have dialysis today. Overnight trend ox. Fistula to L) arm with good bruit and thrill. Held Cozaar, Lasix, hydralazine and Minoxidil per MD orders. Last blood pressure was 126/65. No urine output. Denies pain. Follow up:
[2016-11-29 06:15] LABS: ALBUMIN 2.9 gm/dL (3.5-5.0); CALCIUM 8.5 mg/dL (8.5-10.5); CREATININE 13.1 mg/dL (0.6-1.3)
[2016-11-29 06:23] LABS: PHOSPHORUS 9.5 mg/dL (2.5-4.9)
--- NOTE | 2016-11-29 07:55 | NUR ---
[id number] supervised [facility] Terminal Operator.
--- NOTE | 2016-11-29 08:09 | NUR ---
pt taken down to dialysis at 0745
--- NOTE | 2016-11-29 11:25 | NUR ---
Sofia from Pulmonary department out [facility] #[phone]. She is trying to help RT Sanam get oxygen lined up in the home however there is question as to what insurance he has. May be Medicaid pending. 1130 Called admissions - patient per their record only has Medicare A, not B. No supplement and denied for Medicaid. 1135 called Sofia back. Medicare B pays for oxygen but doesn't have per our records, patient currently at dialysis. Suggested him filling out a financial assistance form them maybe [facility] oxygen supplier would work with the cost. 1140 Called Caitlyn with [employer]/Medicaid. He is pending Medicaid, but that is all she can see. 1145 called Sofia and gave her that information. She will communicate this all to Sanam. I asked if there was anything further I could do to assist? She said no.
[2016-11-29] MEDS ORDERED: CEFAZOLIN2 GM/50 ML IV (14:00)
--- NOTE | 2016-11-29 14:57 | NUR ---
pt given discharge instructions and voices understanding. medications and appointments reviewed with pt. escorted to the front door by this nurse. mother at pt's side.
== END 2016-11-29 14:50 | disposition disaster alternative care site (69) | DRG 314 ==
LOC: GMED 07:45 → GPCU 09:43 → G3N 09:43
PROVIDERS: Emergency Medicine; Nurse Practitioner; ADMIT Internal Medicine
PROC: 0JPTXXZ Removal of Tunneled Vascular Access Device from Trunk Subcutaneous Tissue and Fascia, External Approach (ICD-10-PCS; principal; 2016-11-23)
DX: T82.7XXA Infection and inflammatory reaction due to other cardiac and vascular devices, implants and grafts, initial encounter (principal); N18.6 End stage renal disease; J96.01 Acute respiratory failure with hypoxia; A41.01 Sepsis due to Methicillin susceptible Staphylococcus aureus; I12.0 Hypertensive chronic kidney disease with stage 5 chronic kidney disease or end stage renal disease; D69.6 Thrombocytopenia, unspecified; N17.9 Acute kidney failure, unspecified; I50.20 Unspecified systolic (congestive) heart failure; R65.20 Severe sepsis without septic shock; D63.1 Anemia in chronic kidney disease; R91.8 Other nonspecific abnormal finding of lung field; Z99.2 Dependence on renal dialysis; Z79.82 Long term (current) use of aspirin
CPT/HCPCS: J0131; J0690; J1642; J1644; J1956; J2185; J3370; J7030; J7040; J7050; Q9967

== ENCOUNTER → 2016-12-19 | Outpatient (CLI) | payer MEDICARE, MEDICAID ==
[~2016-12-19] MED LIST: ASPIRIN LO-DOSE81 MG PO; AURYXIA210 MG PO; CEFAZOLIN2 GM/50 ML IV; COREG25 MG PO; COZAAR50 MG PO; FERROUS SULFAT325 MG PO; HYDRALAZINE HC100 MG PO; LASIX80 MG PO; LIPITOR10 MG PO; MINOXIDIL10 MG PO; SODIUM BICARBO650 MG PO; TYLENOL EXTRA500 MG PO
== END | disposition disaster alternative care site (69) ==
LOC: GOPD 12-12
DX: R91.8 Other nonspecific abnormal finding of lung field (principal)
CPT/HCPCS: J2250; J3010; J7030

== ENCOUNTER 2017-03-21 11:09 | Emergency (ER) | payer MEDICARE, MEDICAID ==
--- NOTE | ~2017-03-21 | ER ---
PATIENT'S NAME: ULISSES [facility]OD[facility] AGE: 31 Y [address] ROOM: [place] [address] LOCATION: [facility] ADMIT DATE: 03/21/2017 ER/Outpatient Report DISCHARGE DATE: 03/21/2017 FAMILY PHYSICIAN: Kings Patel MD ATTENDING PHYSICIAN: Paula Rizzo TIME OF ARRIVAL: 1109 hours. TIME OF EVALUATION: 1110 hours. CHIEF COMPLAINT: Irregular heartbeat. HISTORY OF PRESENT ILLNESS: The patient is a 31-year-old male who presents to the emergency department today with a chief complaint of irregular heartbeat. Apparently, the patient was over at Dialysis, undergoing dialysis, when the nurse checked his pulse. She felt that it was irregular. She reported that his heart rate was going low as well. The patient denies any symptoms. He denies any chest pain or shortness of breath. No fevers or chills. No nausea or vomiting. No diarrhea or constipation. Denies any excessive caffeine use. 0/10 pain. PAST MEDICAL HISTORY: Hypertension; chronic renal failure, on dialysis; with a history of ureteral obstruction. PAST SURGICAL HISTORY: Left forearm fistula, right knee. SOCIAL HISTORY: The patient denies any tobacco use. Reports occasional alcohol use. Denies any illicit drug use. ALLERGIES: NO KNOWN DRUG ALLERGIES. MEDICATIONS: Please see list. REVIEW OF SYSTEMS: All systems are reviewed by myself and are negative with the exception of those discussed in the HPI and Past Medical History. PATIENT'S NAME: ULISSES YODER [facility] AGE: 31 Y [address] ROOM: [place] [address] LOCATION: [facility] ADMIT DATE: 03/21/2017 ER/Outpatient Report DISCHARGE DATE: 03/21/2017 FAMILY PHYSICIAN: Kings Patel MD ATTENDING PHYSICIAN: Paula Rizzo PHYSICAL EXAMINATION: VITAL SIGNS: Weight 108.4 kg. Blood pressure 119/65, pulse 75, respiratory rate 14, temperature 97.4, and oxygen saturation 99% on room air. GENERAL: The patient is a 31-year-old male, well developed, well nourished, in no acute distress. HEENT: Normocephalic, atraumatic. Pupils are equal, round, and reactive to light. Nares are patent bilaterally. TMs are clear. Oropharynx is clear. NECK: Supple. There is no nuchal rigidity. CARDIOVASCULAR: Regular rate and rhythm. No murmurs, rubs, or gallops. LUNGS: Clear to auscultation bilaterally. No wheezes, rales, or rhonchi. ABDOMEN: Soft, nontender, and nondistended. No rebound, rigidity, or guarding. MUSCULOSKELETAL: The patient moves all 4 extremities. SKIN: Warm and dry. There are no rashes or lesions noted. LABORATORY AND X-RAY DATA: EKG is obtained, is interpreted by myself, and shows sinus rhythm with a rate of 81, normal axis, with frequent PVCs. There is no ST elevation. No ST depression. There are T-wave inversions in I and aVL. CBC is normal. CMP is unremarkable except for a BUN of 36 and creatinine 7.8. LFTs are normal. Magnesium is 2.4. CK is normal. CK-MB is normal. Troponin is normal. Coags are normal. Chest x-ray shows no acute process. IMPRESSION: 1. Premature ventricular contractions. 2. Initial visit. EMERGENCY DEPARTMENT COURSE: The patient was brought back to the examination room. Seen and evaluated by myself. IV was established. Laboratory analysis and imaging were obtained as described above. The patient has absolutely no symptoms at this time. He does have PVCs noted on the monitor. I have discussed PVCs with the patient. Recommended followup with Dr. Patel in 1 to 2 days for reevaluation. I have discussed return to care instructions including chest pain, shortness of breath, or any other concerns, to return to the emergency department as soon as possible. The patient is agreeable without further questions at this time. DISPOSITION: The patient is discharged to home in good condition. PAULA RIZZO DO PATIENT'S NAME: ULISSES [facility]OD[facility] AGE: 31 Y [address] ROOM: [place] [address] LOCATION: [facility] ADMIT DATE: 03/21/2017 ER/Outpatient Report DISCHARGE DATE: 03/21/2017 FAMILY PHYSICIAN: Kings Patel MD ATTENDING PHYSICIAN: Paula Rizzo/shaanl /[id number] d: 03/21/17 1713 t: 03/27/17 1841, OUTPATIENT REPORT
[2017-03-21 11:51] LABS: BASOPHIL % 0.4 %; EOSINOPHIL # 0.1 K/uL (0.0-0.5); EOSINOPHIL % 2.5 %; HEMOGLOBIN 14.5 g/dL (12.0-17.0); IMMATURE GRANULOCYTE % 0.4 %; LYMPHOCYTE # 0.9 K/uL (0.8-4.0); LYMPHOCYTE % 17.7 %; MCV 94.6 fl (83.0-98.0); MONOCYTE # 0.6 K/uL (0.0-1.0); MONOCYTE % 11.6 %; MPV 9.3 fl (9.4-12.4); NEUTROPHIL # (ANC) 3.5 K/uL (1.4-9.0); NEUTROPHIL % 67.4 %; NRBC % 0 /100WBC (0-0.00); RDW-CV 14.3 % (11.9-14.6); WBC 5.2 K/uL (4.0-11.0)
[2017-03-21 11:53] LABS: MCH 32.6 pg (27.0-34.0); RBC 4.45 M/uL (4.00-6.00)
[2017-03-21 11:54] LABS: HEMATOCRIT 42.1 % (37.0-53.0); MCHC 34.4 gm/dL (32.0-36.5); PLATELET COUNT 243 K/uL (150-450)
[2017-03-21 12:00] LABS: INR - (THERAPEUTIC) 0.95 (0.92-1.07); PTT 28 SECONDS (25-32)
[2017-03-21 12:09] LABS: ALBUMIN 4.3 gm/dL (3.5-5.0); ALK PHOS 77 IU/L (33-138); ALT 34 IU/L (12-78); ANION GAP 15.1 (10.0-19.0); AST 17 IU/L (10-40); BLOOD UREA NITROGEN 36 mg/dL (6-24); CALCIUM 9.6 mg/dL (8.5-10.5); CHLORIDE 95 mMol/L (96-110); CO2 27 mMol/L (22-32); CPK 87 IU/L (35-332); MAGNESIUM 2.4 mg/dL (1.8-2.6); POTASSIUM 4.1 mMol/L (3.7-5.1); SODIUM 133 mMol/L (135-145); TOTAL BILIRUBIN 0.5 mg/dL (0.0-1.5)
[2017-03-21 12:11] LABS: CREATININE 7.8 mg/dL (0.6-1.3); TOTAL PROTEIN 9.2 g/dL (6.0-8.4)
== END 2017-03-21 12:28 | disposition disaster alternative care site (69) ==
LOC: GMED 11:09
PROVIDERS: Emergency Medicine
DX: I49.3 Ventricular premature depolarization (principal); I12.0 Hypertensive chronic kidney disease with stage 5 chronic kidney disease or end stage renal disease; N18.6 End stage renal disease; Z99.2 Dependence on renal dialysis; Z98.890 Other specified postprocedural states; Z79.899 Other long term (current) drug therapy